=== PATIENT | male | born 1970 ===

== ENCOUNTER 2018-01-07 09:26 | Emergency (ER) | payer OTHER ==
[2018-01-07 09:58] VITALS: RESP 20
--- NOTE | 2018-01-07 10:10 | C.PDOC ---
History Of Present Illness 47 year old male presents to the ER with a complaint of a frontal headache for one week that radiates to the back of the head, associated with sinus congestion and subjective fever. Patient reports he has minimal relief with advil. Denies nausea, vomiting, trauma, or Hx of frequent headaches. PERSIST HOLLY X 1 WEEK. FRONT W RADIATION TO BACK. +SINUS ZAFAR. MIN RELIEF W ADVIL. SUBJ FEVER. NO NV. DENIES HO FREQ HOLLY. NO TRAUMA EXAM MILD DIST NONTOXIC HEENT NO PHOTOPHOBIA; THROAT CLEAR; NOSE CLEAR; +FRONTAL SINUS TEND NECK SUPPLE NO MENINGISMUS NEURO INTACT REMAINDER NEG Time Seen by Provider: 01/07/18 10:04 Chief Complaint (Nursing): Flu-like Symptoms History Per: Patient History/Exam Limitations: no limitations Onset/Duration Of Symptoms: Days Current Symptoms Are (Timing): Still Present Location Of Pain: Headache Sick Contacts (Context): None Associated Symptoms: Fever (Subjective), Other (Headache). denies: Nausea, Vomiting Ear Symptoms: Bilateral: None Recent travel outside of the [place]: No Past Medical History Reviewed: Historical Data, Nursing Documentation, Vital Signs Vital Signs: Last Vital Signs Temp 98.1 F 01/07/18 11:41 Pulse 83 01/07/18 11:41 Resp 20 01/07/18 11:41 BP 124/80 01/07/18 11:41 Pulse Ox 98 01/07/18 11:41 - Medical History PMH: No Chronic Diseases Surgical History: No Surg Hx Family History: States: Unknown Family Hx - Social History Hx Alcohol Use: Yes Hx Substance Use: No - Immunization History Hx Tetanus Toxoid Vaccination: No Hx Influenza Vaccination: No Hx Pneumococcal Vaccination: No Review Of Systems Except As Marked, All Systems Reviewed And Found Negative. Constitutional: Positive for: Fever (Subjective) ENT: Positive for: Nose Congestion. Negative for: Ear Pain, Ear Discharge Gastrointestinal: Negative for: Nausea, Vomiting Neurological: Positive for: Headache Physical Exam - Physical Exam Appears: Non-toxic, Other (Mild distress) Skin: Normal Color, Warm, Dry Head: Atraumatic, Normacephalic, Tenderness (Frontal sinus) Eye(s): bilateral: Normal Inspection, PERRL, EOMI Ear(s): Bilateral: Normal Nose: Normal Oral Mucosa: Moist Throat: Normal, No Erythema, No Exudate Neck: Normal, Supple, Other (No meningismus) Chest: Symmetrical, No Tenderness Cardiovascular: Rhythm Regular Respiratory: Normal Breath Sounds, No Rales, No Rhonchi, No Wheezing Neurological/Psych: Oriented x3, Normal Speech, Normal Cognition ED Course And Treatment O2 Sat by Pulse Oximetry: 98 (Room air) Pulse Ox Interpretation: Normal - CT Scan/US CT Head Other Rad Studies (CT/US): Read By Radiologist, Radiology Report Reviewed CT/US Interpretation: PROCEDURE: CT HEAD WITHOUT CONTRAST. HISTORY: HEADACHE. COMPARISON: None available. TECHNIQUE: Axial computed tomography images were obtained through the head/brain without intravenous contrast. Radiation dose: Total exam DLP = 832.98 mGy-cm. This CT exam was performed using one or more of the following dose reduction techniques: Automated exposure control, adjustment of the mA and/or kV according to patient size, and/ or use of iterative reconstruction technique. FINDINGS: HEMORRHAGE: No intracranial hemorrhage. BRAIN: No mass effect or edema. No atrophy or chronic microvascular ischemic changes. VENTRICLES: No hydrocephalus. CALVARIUM: Unremarkable. PARANASAL SINUSES: Unremarkable as visualized. No significant inflammatory changes. MASTOID AIR CELLS: Unremarkable as visualized. No inflammatory changes. OTHER FINDINGS: None. IMPRESSION: No acute intracranial pathology identified. Progress - Re-Evaluation Re-evaluation Note: 01/07/18 11:36 FEELS BETTER NEURO INTACT - Data Reviewed Data Reviewed: Diagnostic imaging, Old records Medical Decision Making Medical Decision Making: Plan: * CT head * Sudafed * Toradol * Tylenol Disposition Counseled Patient/Family Regarding: Studies Performed, Diagnosis, Need For Followup, Rx Given - Disposition Referrals: YOUR,PMD [Other] Disposition: HOME/ ROUTINE Disposition Time: 11:40 Condition: IMPROVED Additional Instructions: SUPPLEMENT WITH TYLENOL NEEDED DIRECTED. FOLLOW UP WITH YOUR PMD IF PERSISTENT SYMPTOMS. Prescriptions: Ibuprofen [Motrin] 600 mg PO Q6 #30 tab Metoclopramide [Reglan] 1 tab PO TID PRN #25 tab PRN Reason: Nausea/Vomiting Instructions: General Headache (ED) Forms: [facility] (Czech), Work Excuse - Clinical Impression Clinical Impression: Headache - Scribe Statement The provider has reviewed the documentation as recorded by the Scribe Patrick Means All medical record entries made by the Scribe were at my direction and personally dictated by me. I have reviewed the chart and agree that the record accurately reflects my personal performance of the history, physical exam, medical decision making, and the department course for this patient. I have also personally directed, reviewed, and agree with the discharge instructions and disposition.
--- NOTE | 2018-01-07 11:03 | CT ---
PROCEDURE: CT HEAD WITHOUT CONTRAST. HISTORY: HEADACHE COMPARISON: None available. TECHNIQUE: Axial computed tomography images were obtained through the head/brain without intravenous contrast. Radiation dose: Total exam DLP = 832.98 mGy-cm. This CT exam was performed using one or more of the following dose reduction techniques: Automated exposure control, adjustment of the mA and/or kV according to patient size, and/or use of iterative reconstruction technique. FINDINGS: HEMORRHAGE: No intracranial hemorrhage. BRAIN: No mass effect or edema. No atrophy or chronic microvascular ischemic changes. VENTRICLES: No hydrocephalus. CALVARIUM: Unremarkable. PARANASAL SINUSES: Unremarkable as visualized. No significant inflammatory changes. MASTOID AIR CELLS: Unremarkable as visualized. No inflammatory changes. OTHER FINDINGS: None. IMPRESSION: No acute intracranial pathology identified.
[2018-01-07 12:04] VITALS: BP 124/80; PULSE 83; TEMP 98.1; O2SAT 97
== END 2018-01-07 11:59 | disposition home or self-care (01) ==
LOC: C.ER 09:26
DX: R51 Headache (principal)
CPT/HCPCS: 70450; 96372; 99285; J1885

== ENCOUNTER 2018-01-18 15:07 | Emergency (ER) | payer OTHER ==
--- NOTE | 2018-01-18 20:10 | C.PDOC ---
History Of Present Illness 47 year old male presents to the complaining of nasal congestion, and headache. Patient was seen here for the same complaint on January 07 and had a normal workup including head CT at that time. He was prescribed nasal decongestants with which he has been noncompliant. He has been taking Tylenol 1 g 2-3 times per day with minimal relief. Time Seen by Provider: 01/18/18 19:56 Chief Complaint (Nursing): Dizziness/Lightheaded History Per: Patient History/Exam Limitations: no limitations Onset/Duration Of Symptoms: Days Current Symptoms Are (Timing): Still Present Associated Symptoms Preceding Syncopal Episode: Other (Nasal congestion) Fall Associated With With Symptoms: No Past Medical History Reviewed: Historical Data, Nursing Documentation, Vital Signs Vital Signs: Last Vital Signs Temp 97.9 F 01/18/18 20:24 Pulse 82 01/18/18 20:24 Resp 16 01/18/18 20:24 BP 145/71 01/18/18 20:24 Pulse Ox 98 01/18/18 20:24 Family History: States: Unknown Family Hx - Social History Hx Alcohol Use: Yes Hx Substance Use: No - Immunization History Hx Tetanus Toxoid Vaccination: No Hx Influenza Vaccination: No Hx Pneumococcal Vaccination: No Review Of Systems Except As Marked, All Systems Reviewed And Found Negative. Constitutional: Negative for: Fever, Chills ENT: Positive for: Nose Congestion. Negative for: Ear Pain, Throat Pain Cardiovascular: Negative for: Chest Pain Respiratory: Negative for: Cough, Shortness of Breath Gastrointestinal: Negative for: Nausea, Vomiting, Abdominal Pain, Diarrhea Skin: Negative for: Rash Neurological: Positive for: Headache. Negative for: Weakness, Numbness Physical Exam - Physical Exam Appears: Well, No Acute Distress Skin: Normal Color, Warm, Dry Head: Atraumatic, Normacephalic Eye(s): left: Abnormal Pupil (Left pupil smaller than right, post surgical and chronically myiotic) Ear(s): Bilateral: Normal Nose: Other (moderate to severe nasal congestion, no pus) Oral Mucosa: Moist Tongue: Normal Appearing Lips: Normal Appearing Throat: Normal Neck: Normal, Normal ROM, Supple Cardiovascular: Rhythm Regular (Rate regular ) Respiratory: Normal Breath Sounds Gastrointestinal/Abdominal: Normal Exam, Soft, No Tenderness Back: Normal Inspection Extremity: Normal ROM, No Deformity Neurological/Psych: Oriented x3, Normal Speech ED Course And Treatment O2 Sat by Pulse Oximetry: 97 Medical Decision Making Medical Decision Making: Will give pseudaphedrine and ibuprofen. Will re-evaluate for likely discharge home. nasal congestion, mild viral syndrome non-compliant with decongestants prescribed prior eval 01/07, normal head CT Extensively educated. Disposition Doctor Will See Patient In The: Office Counseled Patient/Family Regarding: Studies Performed, Diagnosis - Disposition Referrals: [facility] [Outside] Disposition: HOME/ ROUTINE Disposition Time: 20:10 Condition: GOOD Additional Instructions: sigue cualquier medicamento que dice, " Cold and Sinus" que contiene ingredientes INCLUYENDO DESCONGESTIONANTES PARA LAS PASAJES NASALES." Instructions: Sinus Headache (DC) Forms: [employer] (Central African) Print Language: CAP[place]DEAN - Clinical Impression Clinical Impression: Headache, Nasal sinus congestion - Scribe Statement The provider has reviewed the documentation as recorded by the Scribe The provider has reviewed the documentation as recorded by the Scribe (Kain Lin) Provider Attestation: All medical record entries made by the Scribe were at my direction and personally dictated by me. I have reviewed the chart and agree that the record accurately reflects my personal performance of the history, physical exam, medical decision making, and the department course for this patient. I have also personally directed, reviewed, and agree with the discharge instructions and disposition.
[2018-01-18 20:24] VITALS: BP 145/71; PULSE 82; RESP 16; TEMP 97.9
[2018-01-18 22:31] VITALS: O2SAT 97
== END 2018-01-18 20:24 | disposition home or self-care (01) ==
LOC: C.ER 15:07
DX: R51 Headache (principal); R09.81 Nasal congestion